=== PATIENT | male | born 1965 | race Caucasian/White ===

== ENCOUNTER 2017-11-02 12:03 | Emergency (ER) | payer SELFPAY ==
[~2017-11-02] VITALS: Ht 180.3 cm; Wt 110.0 kg
[2017-11-02 12:05] VITALS: BP 138/78
[2017-11-02] MEDS ORDERED: OLME20TA14 PO (12:08)
[2017-11-02] MEDS ORDERED: ATOR10TA PO (12:08)
[2017-11-02] MEDS ORDERED: SODIUM CHLORIDE 0.9% 1,000 ML IV ONE (17:15)
[2017-11-02] MEDS ORDERED: ONDANSETRON HCL 4MG/2ML VIAL IV ONE (17:15)
== END 2017-11-02 17:55 | disposition left against medical advice (07) ==
LOC: ER 12:03
DX: R11.2 Nausea with vomiting, unspecified (principal); Z53.21 Procedure and treatment not carried out due to patient leaving prior to being seen by health care provider
CPT/HCPCS: J7030